=== PATIENT | female | born 1940 | race Caucasian/White ===

== ENCOUNTER → 2021-12-16 | Outpatient (CLI) | payer MEDICARE ==
--- NOTE | 2021-12-16 15:23 | KCIC ---
EXAM: Brain MRI without contrast. HISTORY: Stroke. TECHNIQUE: Multiplanar, multisequence magnetic resonance imaging of the brain was performed without c ontrast. COMPARISON: CT dated 11/28/2021. FINDINGS: There is no acute or subacute infarct. There is no hemorrhage. There is no mass effect or m idline shift. There is no hydrocephalus. There are multiple scattered focal areas of signal change wi thin the cerebral white matter, a nonspecific finding. There is evidence of lens surgery. The paranasal sinuses mastoid air cells are unremarkable. There ar e normal flow voids within the cerebral vessels. There is no suspicious calvarial lesion. IMPRESSION: 1. No acute intracranial finding. 2. Scattered small cerebral white matter lesions, likely due to chronic small vessel disease in a pat ient of this age. Electronically signed by: Jacqui Wong MD (12/16/2021 3:21 PM) [facility]
--- NOTE | 2021-12-16 16:05 | KCIC ---
EXAM: Cervical spine MRI without contrast. HISTORY: Occipital neuralgia. TECHNIQUE: Multiplanar, multisequence magnetic resonance imaging of the cervical spine was performed without contrast. COMPARISON: None. FINDINGS: There is minimal anterolisthesis of C4 on C5 and mild anterolisthesis of C5 on C6, C6 on C7 and C7 on T1. There is multilevel endplate remodeling, primarily at C5-C6. There is disc space narro wing at this level. There is no suspicious osseous lesion. There is no acute or subacute fracture. Th ere is multilevel facet arthropathy. There is no spinal cord lesion. At C2-C3, there is severe right and mild left facet arthropathy. There is no stenosis. At C3-C4, there is mild right and severe left facet arthropathy. There is moderate to severe left for aminal stenosis. At C4-C5, there is endplate remodeling. There is severe bilateral facet arthropathy. There is bilater al uncovertebral arthropathy. There is mild left foraminal stenosis. At C5-C6, there are right greater than left lateral recess to foraminal disc protrusions and osteophy te complexes superimposed on a disc bulge and endplate remodeling. There is moderate to severe right and moderate left facet arthropathy. There is bilateral uncovertebral arthropathy. There is severe ri ght greater than left foraminal stenosis. There is deformation of the spinal cord and moderate centra l canal stenosis measuring 7.5 mm anteroposteriorly dimension. At C6-C7, there is moderate right and severe left facet arthropathy. There is no stenosis. IMPRESSION: Multilevel degenerative change involving the cervical spine, described in detail above. T his results in moderate to severe left foraminal stenosis at C3-C4, mild left foraminal stenosis at C 4-C5, and severe right and left foraminal and moderate central canal stenosis at C5-C6. Electronically signed by: Jacqui Wong MD (12/16/2021 4:03 PM) [facility]
== END ==
LOC: KCIC MRI 14:17
PROVIDERS: ATTEND Family Medicine
DX: R90.82 White matter disease, unspecified (principal); M47.812 Spondylosis without myelopathy or radiculopathy, cervical region; M48.02 Spinal stenosis, cervical region; M48.8X2 Other specified spondylopathies, cervical region; M54.81 Occipital neuralgia; I63.9 Cerebral infarction, unspecified
CPT/HCPCS: 70551; 72141